=== PATIENT | male | born 1980 | race Caucasian/White ===

== ENCOUNTER 2018-09-22 18:44 | Emergency (ER) | payer SELFPAY ==
[2018-09-23] MEDS ORDERED: NITROGLYCERIN AEROSOL (4.9 GM) (08:46)
== END 2018-09-22 19:18 | disposition left against medical advice (07) ==
LOC: E/R 18:44
DX: Z53.21 Procedure and treatment not carried out due to patient leaving prior to being seen by health care provider (principal)
CPT/HCPCS: 93005